=== PATIENT | male | born 1950 | race Caucasian/White ===

== ENCOUNTER 2025-01-28 10:07 | Emergency (ER) | payer OTHER ==
[2025-01-28 10:15] VITALS: BP 160/78; PULSE 87; RESP 16; TEMP 97.1; BMI 39.1
[2025-01-28] MEDS ORDERED: ACETAMINOPHEN 325 MG TABLET (FP) ONE (10:57)
[2025-01-28] MEDS: ACETAMINOPHEN 500 MG TABLET (FP) PO ONE (11:01)
== END 2025-01-28 11:57 | disposition home or self-care (01) ==
LOC: JER 10:07
DX: L98.9 Disorder of the skin and subcutaneous tissue, unspecified (principal)
CPT/HCPCS: 99283-25